=== PATIENT | male | born 1985 | race Caucasian/White ===

== ENCOUNTER 2018-03-14 23:42 | Emergency (ER) | payer OTHER ==
[~2018-03-14] VITALS: Ht 172.7 cm; Wt 88.5 kg
[~2018-03-14 23:42] MED LIST: ACETAMINOPHEN-1 EAC1 PO; AUGMENTIN 875875 M1 PO; BACTRIM DS TAB1 EAC1 PO; BACTROBAN22 GM TP; FLEXERIL PO; NAPROSYN500 MG PO; NOHOMEMEDICATIONS; PROMETHAZINE-D120 ML PO; SINUS NASAL SPR30 M1 NS; VICODIN 5-5001 EACH PO
[2018-03-15 01:18] VITALS: BP 150/89
== END 2018-03-15 01:18 | disposition home or self-care (01) ==
LOC: M.ERS 23:42
DX: S01.01XA Laceration without foreign body of scalp, initial encounter (principal); G43.909 Migraine, unspecified, not intractable, without status migrainosus; F41.0 Panic disorder [episodic paroxysmal anxiety]; F17.210 Nicotine dependence, cigarettes, uncomplicated; W18.39XA Other fall on same level, initial encounter; Y93.89 Activity, other specified; Y92.89 Other specified places as the place of occurrence of the external cause; Y99.8 Other external cause status

== ENCOUNTER 2018-07-26 22:38 | Emergency (ER) | payer OTHER ==
[~2018-07-26] VITALS: Ht 175.3 cm; Wt 81.7 kg
[2018-07-26 22:53] VITALS: BP 141/49
[2018-07-26] MEDS ORDERED: ERYTHROMYCIN E3.5 G2 OPHTHALMIC (23:20)
== END 2018-07-26 23:15 | disposition home or self-care (01) ==
LOC: M.ERS 22:38
DX: H57.12 Ocular pain, left eye (principal); F41.0 Panic disorder [episodic paroxysmal anxiety]; G43.909 Migraine, unspecified, not intractable, without status migrainosus; F17.210 Nicotine dependence, cigarettes, uncomplicated

== ENCOUNTER 2019-02-02 18:42 | Emergency (ER) | payer OTHER ==
[~2019-02-02] VITALS: Ht 172.7 cm; Wt 86.2 kg
[~2019-02-02 18:42] MED LIST changes: +ERYTHROMYCIN E3.5 G2 OPHTHALMIC
[2019-02-02 20:48] VITALS: BP 129/83
== END 2019-02-02 20:49 | disposition home or self-care (01) ==
LOC: M.ERS 18:42
DX: T15.91XA Foreign body on external eye, part unspecified, right eye, initial encounter (principal); G43.909 Migraine, unspecified, not intractable, without status migrainosus; F41.0 Panic disorder [episodic paroxysmal anxiety]; F17.210 Nicotine dependence, cigarettes, uncomplicated; X58.XXXA Exposure to other specified factors, initial encounter; Y93.89 Activity, other specified; Y92.89 Other specified places as the place of occurrence of the external cause; Y99.8 Other external cause status

== ENCOUNTER 2019-04-18 20:41 | Emergency (ER) | payer OTHER ==
[~2019-04-18] VITALS: Ht 172.7 cm; Wt 83.9 kg
[2019-04-18] MEDS ORDERED: KEFLEX500 M2 PO (21:00)
[2019-04-18] MEDS ORDERED: BACTRIM DS TAB1 EACH PO (21:00)
[2019-04-18 21:39] VITALS: BP 140/50
== END 2019-04-18 21:40 | disposition home or self-care (01) ==
LOC: M.ERS 20:41
DX: S61.412A Laceration without foreign body of left hand, initial encounter (principal); L03.114 Cellulitis of left upper limb; G43.909 Migraine, unspecified, not intractable, without status migrainosus; F41.0 Panic disorder [episodic paroxysmal anxiety]; F17.210 Nicotine dependence, cigarettes, uncomplicated; W26.8XXA Contact with other sharp object(s), not elsewhere classified, initial encounter; Y93.89 Activity, other specified; Y92.89 Other specified places as the place of occurrence of the external cause; Y99.8 Other external cause status

== ENCOUNTER 2020-03-30 20:26 | Emergency (ER) | payer OTHER ==
[~2020-03-30] VITALS: Ht 172.7 cm; Wt 86.2 kg
[~2020-03-30 20:26] MED LIST changes: +BACTRIM DS TAB1 EACH PO; +KEFLEX500 M2 PO
[2020-03-30 21:13] LABS: ABSOLUTE BASOPHILS 0.1 thou/uL (0.0-0.2); ABSOLUTE EOSINOPHILS 0.2 thou/uL (0.0-0.7); ABSOLUTE LYMPHOCYTES 1.8 thou/uL (0.8-5.3); ABSOLUTE MONOCYTES 0.8 thou/uL (0.0-1.2); ABSOLUTE NEUTROPHILS 2.9 thou/uL (1.6-8.1); EOSINOPHILS 2.8 %; HEMATOCRIT 42.5 % (42.0-52.0); HEMOGLOBIN 14.3 gm/dL (14.0-18.0); LYMPHOCYTES 31.4 %; MCH 29.8 pg (26.0-34.0); MCHC 33.6 g/dL (28.0-37.0); MCV 88.6 fL (80.0-100.0); MONOCYTES 13.5 %; NUCLEATED RBCS 0 /100WBC; PLATELET COUNT* 248 thou/uL (150-400); POLYS 51.3 %; RDW-CV 13.3 % (10.5-14.5); WBC 5.6 thou/uL (4.0-11.0)
[2020-03-30 21:20] LABS: POTASSIUM 4.1 mmol/L (3.5-5.1)
[2020-03-30 21:22] LABS: PROTIME 10.5 Seconds (9.20-11.50)
[2020-03-30 21:25] LABS: ALBUMIN 3.5 g/dL (3.4-5.0); TOTAL BILIRUBIN 0.2 mg/dL (<0.1-1.0); TOTAL PROTEIN 6.6 g/dL (6.4-8.2)
[2020-03-30 22:20] VITALS: BP 140/70
--- NOTE | 2020-03-31 17:10 | EKG ---
[place] [address] ELECTROCARDIOGRAM REPORT Name: SHANAEAMANDA R Room: [facility]#: [id number] Admission: 03/30/20 Attend Phys: Discharge: 03/30/20 Date of : 85 Date of Service: 03/30/202032 Report #: [id number] THIS REPORT FOR: //name// [facility] ED Test Date: 2020-03-30 Test Time: 20:33:41 Pat Name: AMANDA JOLLY Department: Room: Gender: Estate Planning Attorney: [place] : 1985 Requested By: Elvi Kilgore Order Number: [id number] MD: Pilo Ro Measurements Intervals [place] Rate: 89 P: 78 AR: 164 QRS: 2 QRSD: 109 T: 63 QT: 361 QTc: 440 Interpretive Statements Sinus rhythm Left atrial enlargement RSR' in V1 or V2, right VCD ST elev, probable normal early repol pattern Compared to ECG 02/14/2009 17:18:36 Atrial abnormality now present RSR' in V1 or V2 now present ST (T wave) deviation now present Electronically Signed On 03-31-2020 17:09:56 ELECTRICAL DESIGN TECHNOLOGIST by Pilo Ro [email or web address] <ELECTRONICALLY SIGNED> By: Pilo Ro MD, [facility] 03/31/20 1709 32 32 Pilo Ro MD, [facility] /EPI
== END 2020-03-30 22:20 | disposition home or self-care (01) ==
LOC: M.ERS 20:26
PROVIDERS: Personal Emergency Response Attendant
DX: F41.9 Anxiety disorder, unspecified (principal); Z20.822 Contact with and (suspected) exposure to COVID-19; G43.909 Migraine, unspecified, not intractable, without status migrainosus; F17.210 Nicotine dependence, cigarettes, uncomplicated